=== PATIENT | female | born 1980 | race Caucasian/White ===

== ENCOUNTER 2019-02-27 15:25 | Day surgery (SDC) | payer OTHER ==
[2019-02-27 16:10] LABS: ADD MAN DIFF? NO
[2019-02-27 16:13] LABS: WHITE BLOOD COUNT 8.7 10^3/ul (4.8-10.8)
[2019-02-27 16:13] LABS: BASOPHILS % 0.5 % (0.0-2.0); EOSINOPHILS # 0.1 10^3/ul (0.0-0.5); EOSINOPHILS % 1.5 % (0.0-7.0); HEMATOCRIT 45.5 % (37.0-47.0); HEMOGLOBIN 15.4 g/dl (12.0-16.0); LYMPHOCYTES # 1.5 10^3/ul (0.8-2.9); LYMPHOCYTES % 17.3 % (15.0-51.0); MEAN CORPUSCULAR HEMOGLOBIN 31.5 pg (29.0-33.0); MEAN CORPUSCULAR HGB CONC 33.8 g/dl (32.0-37.0); MEAN PLATELET VOLUME 10.9 fl (7.4-10.4); MONOCYTE # 0.6 10^3/ul (0.3-0.9); MONOCYTES % 6.8 % (0.0-11.0); NEUTROPHIL # 6.4 10^3/ul (1.6-7.5); NEUTROPHILS % 73.7 % (39.0-77.0); PLATELET COUNT 332 10^3/UL (140-415); RED BLOOD COUNT 4.89 10^6/ul (4.20-5.40); RED CELL DISTRIBUTION WIDTH 11.9 % (11.5-14.5)
[2019-02-27 16:28] LABS: INR 0.98; PARTIAL THROMBOPLASTIN TIME 29.4 Sec (23.0-35.0); PROTIME 13.1 Sec (11.9-14.9)
[2019-02-27] MEDS ORDERED: LACTATED RINGER'S 1,000 ML IV* (16:30)
[2019-02-27 16:38] LABS: ANION GAP 11 (5-13); BLOOD UREA NITROGEN 11 mg/dl (7-20); CARBON DIOXIDE 24 mmol/L (21-31); CHLORIDE 106 mmol/L (97-110); CREATININE 0.82 mg/dl (0.44-1.00); Estimated GFR > 60 mL/min (>60); GLUCOSE 93 mg/dl (70-220); POTASSIUM 3.8 mmol/L (3.5-5.1); SODIUM 141 mmol/L (135-144)
[2019-02-27 16:52] LABS: CALCIUM 10.4 mg/dl (8.4-10.2)
[2019-02-27] MEDS ORDERED: PROPOFOL 20 ML (18:16)
[2019-02-27] MEDS ORDERED: ROCURONIUM 50 MG INJ (18:16)
[2019-02-27] MEDS ORDERED: LIDOCAINE 2% (SDV) 5 ML INJ (18:17)
[2019-02-27] MEDS: CEFAZOLIN 2 GM/50 ML (PMX) 50 ML IVPB (18:25)
[2019-02-27] MEDS ORDERED: CEFAZOLIN 1 GM INJ (18:27)
[2019-02-27] MEDS ORDERED: DEXAMETHASONE 4 MG/ML 5 ML INJ (18:35)
[2019-02-27] MEDS ORDERED: ONDANSETRON 4 MG INJ ×2 (18:35→19:40)
[2019-02-27] MEDS ORDERED: NEOSTIGMINE 3 MG/3 ML SYRINGE (19:24)
[2019-02-27] MEDS ORDERED: GLYCOPYRROLATE 0.4 MG INJ (19:24)
[2019-02-27] MEDS ORDERED: HYDROmorphONE 1 MG/5 ML IV SYRINGE IV ×2 (19:30)
[2019-02-27] MEDS ORDERED: hydrALAzine 20 MG INJ IV (19:30)
[2019-02-27] MEDS ORDERED: METOCLOPRAMIDE 10 MG INJ IV (19:30)
[2019-02-27] MEDS ORDERED: FENTAnyl 50 MCG/ML VIAL IV ×3 (19:30)
[2019-02-27] MEDS ORDERED: ALBUTEROL 0.083% (NEB) 2.5 MG/3 ML AMP HHN (19:30)
[2019-02-27] MEDS ORDERED: LABETALOL HCL 20MG INJ IV (19:30)
[2019-02-27] MEDS ORDERED: EPHEDrine SULFATE 50 MG/5 ML SYG IV (19:30)
[2019-02-27] MEDS ORDERED: MIDAZOLAM 1 MG/ML 2 ML INJ IV (19:30)
[2019-02-27] MEDS ORDERED: OXYCODONE/ACETAMINOPHEN (5/325) TAB PO (19:30)
[2019-02-27] MEDS ORDERED: MEPERIDINE 25 MG INJ (19:40)
[2019-02-27] MEDS ORDERED: DIPHENHYDRAMINE 50 MG INJ (19:47)
[2019-02-27] MEDS ORDERED: KETOROLAC 30 MG INJ (19:47)
[2019-02-27] MEDS ORDERED: FENTAnyl 50 MCG/ML VIAL (19:47)
[2019-02-27] MEDS: KETOROLAC 30 MG INJ IV (19:54)
[2019-02-27] MEDS: MEPERIDINE 25 MG INJ IV (19:55)
[2019-02-27] MEDS: ONDANSETRON 4 MG INJ IV (19:55)
[2019-02-27] MEDS: DIPHENHYDRAMINE 50 MG INJ IV (20:03)
[2019-02-27] MEDS: HYDROmorphONE 1 MG/5 ML IV SYRINGE IV ×2 (20:04→20:13)
[2019-02-27] MEDS: OXYCODONE/ACETAMINOPHEN (5/325) TAB PO (20:52)
== END 2019-02-27 21:23 | disposition home or self-care (01) ==
LOC: SDS 15:25
DX: S62.326D Displaced fracture of shaft of fifth metacarpal bone, right hand, subsequent encounter for fracture with routine healing (principal); W23.0XXD Caught, crushed, jammed, or pinched between moving objects, subsequent encounter
CPT/HCPCS: 26746; 71045; 73130-RT; 80048; 85025; 85610; 85730; 93005